=== PATIENT | male | born 1945 | race Caucasian/White ===

== ENCOUNTER 2021-11-28 04:53 | Emergency (ER) | payer MEDICARE ==
[~2021-11-28 04:53] MED LIST: AZITHROMYCIN250 MG PO
[2021-11-28 05:44] LABS: EOSINOPHIL 1.2 % (0-7); HCT 41.6 % (42.0-52.0); HGB 14.9 g/dl (13.2-18.0); LYMPHOCYTE 16.3 % (15-48); MCH 33.5 pg (25.0-31.0); MCHC 35.8 g/dL (32.0-36.0); MCV 93.5 fL (78.0-100.0); MONOCYTE 7.8 % (0-12); MPV 9.9 fL (6.0-9.5); NEUTROPHIL 73.5 % (41-80); NRBC 0; PLT 127 K/uL (150-400); RBC 4.45 M/uL (4.70-6.00); RDW 12.7 % (11.5-14.0)
[2021-11-28 06:11] LABS: ALBUMIN 3.3 g/dL (3.4-5.0); BILIRUBIN - TOTAL 0.8 mg/dL (0.2-1.0); BUN/CREAT RATIO (CALC) 7.1 RATIO; CREATININE 0.98 mg/dL (0.67-1.17); GLOBULIN (CALCULATION) 2.9 g/dL; POTASSIUM 4.1 mmol/L (3.5-5.1); TOTAL PROTEIN 6.2 g/dL (6.4-8.2)
[2021-11-28 06:18] LABS: CORONAVIRUS 2019 SARS-COV-2 NEGATIVE (NEGATIVE); INFLUENZA A NAA NEGATIVE (NEGATIVE)
[2021-11-28 06:36] LABS: INR 1.13 (0.9-1.2); PROTHROMBIN TIME 13.9 SECONDS (11.8-13.4); PTT 31.1 SECONDS (24.4-34.7)
== END 2021-11-28 09:22 | disposition home or self-care (01) ==
LOC: FER 04:53
PROVIDERS: Internal Medicine
DX: B34.9 Viral infection, unspecified (principal); I11.0 Hypertensive heart disease with heart failure; I50.9 Heart failure, unspecified; E87.1 Hypo-osmolality and hyponatremia; E83.42 Hypomagnesemia; Z20.822 Contact with and (suspected) exposure to COVID-19
CPT/HCPCS: 36415; 71045; 80053; 83735; 83880; 84145; 84484; 85025; 85379; 85610; 85730; 93005; 94664; J2060; J3475; J7030; J7050; U0002